=== PATIENT | female | born 1955 | race Caucasian/White ===

== ENCOUNTER 2021-09-10 11:45 | Inpatient (IN) | payer MEDICARE, MEDICAID ==
[~2021-09-10] VITALS: Ht 167.6 cm; Wt 77.1 kg
[2021-09-10 13:29] LABS: BASOPHILS % 0.3 % (0.0-2.0); EOSINOPHILS % 1.1 % (0.0-5.0); HEMATOCRIT. 38.8 % (36.0-48.0); HEMOGLOBIN. 13.2 g/dL (12.0-16.0); LYMPHOCYTES % 19.5 % (20.0-50.0); MEAN CORPUSCULAR HEMOGLOBIN 29.1 pg (28.0-32.0); MEAN CORPUSCULAR VOLUME 85.9 fL (81.0-99.0); MEAN PLATELET VOLUME 8.2 fl (7.4-10.4); MONOCYTES % 8.8 % (2.0-8.0); NEUTROPHILS % 70.3 % (40.0-76.0); PLATELET 306 x1000/uL (130-400); RED BLOOD CELL COUNT 4.52 mill/uL (4.2-5.4); RED CELL DISTRIBUTION WIDTH 13.5 % (11.6-14.6)
[2021-09-10 13:30] LABS: CHLORIDE 92 mEq/L (98-107)
[2021-09-10 13:42] LABS: ETHANOL BLOOD < 10 mg/dL
[2021-09-10] MEDS ORDERED: ALPRAZOLAM 0.25 MG TABLET PO ONE (14:30)
[2021-09-10 14:45] LABS: *AMPHETAMINES SCREEN URINE NEGATIVE (NEGATIVE); *BARBITURATES SCREEN URINE PRESUMTIVE POSITIVE (NEGATIVE); *BENZODIAZEPINES SCREEN URINE NEGATIVE (NEGATIVE); *COCAINE SCREEN URINE NEGATIVE (NEGATIVE); CANNABINOID URINE SCREEN NEGATIVE (NEGATIVE); METHADONE URINE SCREEN NEGATIVE (NEGATIVE); OPIATES URINE SCREEN NEGATIVE (NEGATIVE); PHENCYCLIDINE URINE SCREEN NEGATIVE (NEGATIVE)
[2021-09-10] MEDS ORDERED: SODIUM CHLORIDE 0.9% 500 ML IV NR (15:00)
[2021-09-10] MEDS ORDERED: ASPIRIN 81MG TABLET PO ONE (15:45)
[2021-09-10] MEDS ORDERED: GUAIFENESIN 200MG/10ML SUGAR FREE UDC PO PRN (18:15)
[2021-09-10] MEDS ORDERED: CLONIDINE 0.1MG TABLET PO PRN (18:15)
[2021-09-10] MEDS ORDERED: MAGNESIUM/ALUMINUM HYDROXIDE/SIMETHICONE 30ML UDC PO PRN (18:15)
[2021-09-10] MEDS ORDERED: DOCUSATE SODIUM 100MG CAPSULE PO PRN (18:15)
[2021-09-10] MEDS ORDERED: ACETAMINOPHEN 325MG TABLET PO PRN (18:15)
[2021-09-10] MEDS ORDERED: ONDANSETRON HCL 4MG/2ML INJ IV PRN (18:15)
[2021-09-10] MEDS: SODIUM CHLORIDE 0.45% 1,000 ML IV SCH (18:30)
[2021-09-10] MEDS ORDERED: ALPRAZOLAM 0.25 MG TABLET PO NR (18:45)
[2021-09-10 20:04] VITALS: BP 114/75
[2021-09-10 20:30] VITALS: BP 114/75
[2021-09-10] MEDS: ENOXAPARIN 40MG/0.4ML SYR SUBCUT SCH (20:43)
[2021-09-11] VITALS: BP 123/45
[2021-09-11] MEDS: TRAMADOL 50MG TABLET PO PRN ×2 (00:42→09:12)
[2021-09-11 04:00] VITALS: BP 158/79
[2021-09-11] MEDS ORDERED: PHEN15TA25 PO (04:42)
[2021-09-11] MEDS ORDERED: VALP250C3 PO (04:42)
[2021-09-11] MEDS ORDERED: LORA2ORA5 PO (04:42)
[2021-09-11 06:32] LABS: CHLORIDE 101 mEq/L (98-107)
[2021-09-11 06:40] LABS: HDL CHOLESTEROL 65 mg/dL (40-59); LDL CHOLESTEROL 92 mg/dL (5-100)
[2021-09-11 06:51] LABS: BASOPHILS % 0.3 % (0.0-2.0); EOSINOPHILS % 0.8 % (0.0-5.0); HEMATOCRIT. 40.4 % (36.0-48.0); LYMPHOCYTES % 15.9 % (20.0-50.0); MEAN CORPUSCULAR VOLUME 83.6 fL (81.0-99.0); MONOCYTES % 8.9 % (2.0-8.0); NEUTROPHILS % 74.1 % (40.0-76.0); RED BLOOD CELL COUNT 4.83 mill/uL (4.2-5.4); RED CELL DISTRIBUTION WIDTH 13.5 % (11.6-14.6)
[2021-09-11] MEDS: SODIUM CHLORIDE 0.45% 1,000 ML IV SCH (07:50)
[2021-09-11 08:00] VITALS: BP 141/79
[2021-09-11] MEDS: AMLODIPINE 10MG TABLET PO SCH (09:11)
[2021-09-11 09:35] LABS: PLATELET 342 x1000/uL (130-400)
[2021-09-11] MEDS ORDERED: CLON2TAB21 PO (10:20)
[2021-09-11] MEDS ORDERED: OLAN10TA72 PO (10:20)
[2021-09-11] MEDS ORDERED: PHEN100C4 PO (10:20)
[2021-09-11] MEDS ORDERED: ATOR20TA65 MT (10:20)
[2021-09-11] MEDS ORDERED: PHEN97.22 MT (10:20)
[2021-09-11] MEDS ORDERED: PHENOBARBITAL 30 MG TABLET PO SCH (11:00)
[2021-09-11 12:00] VITALS: BP 133/77
[2021-09-11] MEDS: PHENYTOIN SODIUM EXTENDED 100MG CAPSULE PO SCH (12:06)
[2021-09-11] MEDS: OLANZAPINE 10MG TABLET PO SCH (12:06)
[2021-09-11] MEDS: VALPROIC ACID 250MG CAPSULE PO SCH ×2 (12:06→18:04)
[2021-09-11 16:00] VITALS: BP 162/85
[2021-09-11] MEDS ORDERED: LORAZEPAM 1MG TABLET PO PRN (16:45)
[2021-09-11] MEDS ORDERED: NALOXONE HCL 0.4MG/ML VIAL IV PRN (17:00)
[2021-09-11 20:00] VITALS: BP 157/91
[2021-09-11] MEDS: ENOXAPARIN 40MG/0.4ML SYR SUBCUT SCH (20:58)
[2021-09-11] MEDS ORDERED: ZOLPIDEM TARTRATE 5MG TABLET PO PRN (21:00)
[2021-09-11] MEDS ORDERED: CLONAZEPAM 1MG TABLET PO SCH (21:00)
[2021-09-11] MEDS ORDERED: ATORVASTATIN CALCIUM 20MG TABLET PO SCH (21:00)
[2021-09-12 06:00] VITALS: BP 125/83
[2021-09-12 06:59] LABS: CHLORIDE 102 mEq/L (98-107)
[2021-09-12 07:00] LABS: HEMATOCRIT 38.2 % (36.0-48.0); HEMOGLOBIN 13.2 g/dL (12.0-16.0); MEAN CORPUSCULAR HEMOGLOBIN 29.1 pg (28.0-32.0); MEAN CORPUSCULAR VOLUME 84.4 fL (81.0-99.0); PLATELET 349 x1000/uL (130-400); RED BLOOD CELL COUNT 4.53 mill/uL (4.2-5.4); RED CELL DISTRIBUTION WIDTH 13.6 % (11.6-14.6)
[2021-09-12] MEDS: OLANZAPINE 10MG TABLET PO SCH (10:25)
[2021-09-12] MEDS: AMLODIPINE 10MG TABLET PO SCH (10:25)
[2021-09-12] MEDS: VALPROIC ACID 250MG CAPSULE PO SCH ×2 (10:25→15:31)
[2021-09-12] MEDS: PHENYTOIN SODIUM EXTENDED 100MG CAPSULE PO SCH (10:26)
[2021-09-12] MEDS ORDERED: ASPIRIN 81MG TABLET PO SCH (13:15)
[2021-09-12] MEDS ORDERED: SERTRALINE HCL 25MG TABLET PO SCH (14:00)
[2021-09-12] MEDS ORDERED: TRAZODONE HCL 50MG TABLET PO SCH (21:00)
== END 2021-09-12 19:43 | disposition home or self-care (01) | DRG 392 ==
LOC: ER 11:45 → EDBEDREQ 14:59 → EDBEDREQTM 18:09 → EDBEDREQ 18:09 → ENRESERV 18:37 → 7WST 23:01
PROVIDERS: ADMIT Hospitalist; ATTEND Hospitalist
DX: K21.9 Gastro-esophageal reflux disease without esophagitis (principal); E87.1 Hypo-osmolality and hyponatremia; G40.909 Epilepsy, unspecified, not intractable, without status epilepticus; F41.9 Anxiety disorder, unspecified; E78.00 Pure hypercholesterolemia, unspecified; F32.A Depression, unspecified; I10 Essential (primary) hypertension; E78.5 Hyperlipidemia, unspecified; F32.9 Major depressive disorder, single episode, unspecified; F17.200 Nicotine dependence, unspecified, uncomplicated; R74.01 Elevation of levels of liver transaminase levels; Z88.0 Allergy status to penicillin; Z79.82 Long term (current) use of aspirin; Z79.899 Other long term (current) drug therapy
CPT/HCPCS: 36415; 71045; 80048; 80053; 80061; 80305; 80320; 83880; 84484; 85025; 85027; 93005; 93306; 93970; 99285; C1893; J1650; G0480